=== PATIENT | male | born 1940 | race Caucasian/White ===

== ENCOUNTER → 2017-12-08 18:06 | Outpatient (REF) | payer MEDICARE, SELFPAY | LOC: LAB 18:06 | PROVIDERS: PCP Internal Medicine; Visit Provider Dermatology MOHS-Micrographic Surgery | DX: Z48.817 Encounter for surgical aftercare following surgery on the skin and subcutaneous tissue (principal) | CPT/HCPCS: 87070; 87075; 87077; 87147; 87186; 87205 ==

== ENCOUNTER → 2018-04-15 14:42 | Outpatient (CLI) | payer MEDICARE, SELFPAY | PROVIDERS: PCP Internal Medicine; Visit Provider Urology | DX: M85.852 Other specified disorders of bone density and structure, left thigh (principal); Z85.46 Personal history of malignant neoplasm of prostate; Z87.891 Personal history of nicotine dependence | CPT/HCPCS: 77080 ==

== ENCOUNTER → 2018-05-08 14:02 | Outpatient (CLI) | payer MEDICARE, SELFPAY ==
[2018-05-08 16:46] LABS: Prostate Specific Antigen < 0.064 ng/mL (0.10-4.00)
== END ==
PROVIDERS: PCP Internal Medicine; Visit Provider Urology
DX: C61 Malignant neoplasm of prostate (principal)
CPT/HCPCS: 36415; 84153